=== PATIENT | female | born 1985 | race Caucasian/White ===

== ENCOUNTER 2017-02-07 05:25 | Emergency (ER) | payer MEDICAID ==
[2017-02-07 07:05] LABS: BASOPHIL % 0.5 % (0-2); PLATELET COUNT 236 x10^3mcL (130-400); RED CELL DISTRIBUTION WIDTH 16.5 % (11.5-14.5)
[2017-02-07 07:14] LABS: CALCIUM 8.7 mg/dL (8.5-10.1); CARBON DIOXIDE 28.7 mmol/L (21-32); CHLORIDE SERUM 110 mmol/L (98-107); CREATININE SERUM 0.6 mg/dL (0.6-1.0); GFR1 > 60 mL/min; GLUCOSE SERUM 84 mg/dL (74-106); POTASSIUM SERUM 3.9 mmol/L (3.5-5.1); SODIUM SERUM 142 mmol/L (136-145)
[2017-02-07 07:19] LABS: ALBUMIN 3.4 g/dL (3.4-5.0); ALKALINE PHOSPHATASE 68 U/L (46-116); ALT/SGPT 8 U/L (14-59); AST/SGOT 11 U/L (15-37); BILIRUBIN TOTAL 0.3 mg/dL (0.20-1.00); LIPASE 127 IU/L (73-393)
[2017-02-07 09:22] VITALS: BP 128/99
== END 2017-02-07 09:22 | disposition home or self-care (01) ==
LOC: ED 05:25
PROVIDERS: Emergency Medicine
DX: K29.70 Gastritis, unspecified, without bleeding (principal); R03.0 Elevated blood-pressure reading, without diagnosis of hypertension; Z98.890 Other specified postprocedural states
CPT/HCPCS: 36415; J1885; Q0092; Q0162

== ENCOUNTER 2018-07-26 23:03 | Emergency (ER) | payer MEDICAID ==
[~2018-07-26] VITALS: Ht 157.5 cm; Wt 96.2 kg
[2018-07-26 23:07] VITALS: Ht 157.5 cm; Wt 96.2 kg
[2018-07-27 00:01] LABS: BASOPHIL % 0.4 % (0-2); PLATELET COUNT 228 x10^3mcL (130-400); RED CELL DISTRIBUTION WIDTH 16.3 % (11.5-14.5)
[2018-07-27 00:12] LABS: CALCIUM 9.5 mg/dL (8.5-10.1); CHLORIDE SERUM 105 mmol/L (98-107); CREATININE SERUM 0.8 mg/dL (0.6-1.0); GFR1 > 60 mL/min; GLUCOSE SERUM 90 mg/dL (74-106); POTASSIUM SERUM 3.7 mmol/L (3.5-5.1); SODIUM SERUM 142 mmol/L (136-145)
[2018-07-27 03:06] VITALS: BP 142/84
== END 2018-07-27 03:06 | disposition home or self-care (01) ==
LOC: ED 23:03
PROVIDERS: Emergency Medicine
DX: I88.9 Nonspecific lymphadenitis, unspecified (principal); J01.90 Acute sinusitis, unspecified
CPT/HCPCS: J1100; J1885; J2270; J2405; J3490; Q9967

== ENCOUNTER 2018-12-16 21:25 | Emergency (ER) | payer MEDICAID ==
[~2018-12-16] VITALS: Ht 144.8 cm; Wt 99.8 kg
[2018-12-16 21:30] VITALS: BP 134/86; Ht 144.8 cm; Wt 99.8 kg
== END 2018-12-16 23:11 | disposition home or self-care (01) ==
LOC: ED 21:25
DX: L02.411 Cutaneous abscess of right axilla (principal)
CPT/HCPCS: J2001

== ENCOUNTER 2018-12-18 23:53 | Emergency (ER) | payer MEDICAID ==
[~2018-12-18] VITALS: Ht 144.8 cm; Wt 100.5 kg
[2018-12-18 23:57] VITALS: Ht 144.8 cm; Wt 100.5 kg
[2018-12-19 00:46] VITALS: BP 136/68
== END 2018-12-19 00:46 | disposition home or self-care (01) ==
LOC: ED 23:53
DX: L02.413 Cutaneous abscess of right upper limb (principal); Z98.890 Other specified postprocedural states

== ENCOUNTER 2020-01-08 07:00 | Emergency (ER) | payer MEDICAID ==
[~2020-01-08] VITALS: Ht 154.9 cm; Wt 96.6 kg
[2020-01-08 07:14] VITALS: BP 155/82; Ht 154.9 cm; Wt 96.6 kg
== END 2020-01-08 10:30 | disposition home or self-care (01) ==
LOC: ED 07:00
DX: N12 Tubulo-interstitial nephritis, not specified as acute or chronic (principal)
CPT/HCPCS: J0696

== ENCOUNTER 2020-03-05 00:47 | Emergency (ER) | payer MEDICAID ==
[~2020-03-05] VITALS: Ht 157.5 cm; Wt 96.6 kg
[2020-03-05 00:56] VITALS: Ht 157.5 cm; Wt 96.6 kg
[2020-03-05 01:56] LABS: UA SPECIFIC GRAVITY 1.025 (1.005-1.035); microscopic required? YES; urine erythrocyte TRACE (NEGATIVE)
[2020-03-05 02:32] VITALS: BP 122/61
== END 2020-03-05 02:32 | disposition home or self-care (01) ==
LOC: ED 00:47
PROVIDERS: Emergency Medicine
DX: N39.0 Urinary tract infection, site not specified (principal); Z98.890 Other specified postprocedural states
CPT/HCPCS: J1885